=== PATIENT | male | born 2000 | race Caucasian/White ===

== ENCOUNTER 2023-12-31 14:18 | Emergency (ER) | payer OTHER ==
[~2023-12-31] VITALS: Ht 185.4 cm; Wt 87.5 kg
[2023-12-31 14:39] VITALS: BP 129/79; PULSE 65; RESP 22; TEMP 98.4; O2SAT 98
== END 2023-12-31 15:40 | disposition home or self-care (01) ==
LOC: MED 14:18
DX: S09.90XA Unspecified injury of head, initial encounter (principal); Z79.899 Other long term (current) drug therapy; Y04.0XXA Assault by unarmed brawl or fight, initial encounter; Y93.89 Activity, other specified; Y92.89 Other specified places as the place of occurrence of the external cause; Y99.8 Other external cause status
CPT/HCPCS: 99281